=== PATIENT | male | born 1985 | race Caucasian/White ===

== ENCOUNTER 2019-12-26 13:04 | Emergency (ER) | payer OTHER, SELFPAY ==
[~2019-12-26] VITALS: Ht 162.6 cm; Wt 63.5 kg
[2019-12-26 13:06] VITALS: Ht 162.6 cm; Wt 63.5 kg
[2019-12-26 16:20] VITALS: BP 135/92
== END 2019-12-26 16:20 | disposition home or self-care (01) ==
LOC: ED 13:04
DX: R06.00 Dyspnea, unspecified (principal); R43.9 Unspecified disturbances of smell and taste; Z20.828 Contact with and (suspected) exposure to other viral communicable diseases
CPT/HCPCS: Q0092; U0003-CS